=== PATIENT | female | born 1965 | race Caucasian/White ===

== ENCOUNTER 2017-11-02 09:39 | Day surgery (SDC) | payer OTHER ==
[2017-10-30 15:24] LABS: ALBUMIN 3.5 g/dL (3.4-5.0); ANION GAP 8 mmol/L (5-15); CALCIUM 8.7 mg/dL (8.5-10.1); CHLORIDE 104 mmol/L (98-107)
[2017-10-30 15:28] LABS: ALANINE AMINOTRANSFERASE 33 U/L (12-78); ALKALINE PHOSPHATASE 102 U/L (45-117); BILIRUBIN,TOTAL 0.5 mg/dL (0.2-1.0); CREATININE 0.75 mg/dL (0.55-1.02); TOTAL PROTEIN 7.1 g/dL (6.4-8.2)
[~2017-11-02] VITALS: Ht 154.9 cm; Wt 126.4 kg
[~2017-11-02 09:39] MED LIST: ADAL40KI INJ; ALLO100T30 PO; ATOR20TA9 PO; CHOL20002 PO; CITA40TA12 PO; CYCL-259 PO; FOLI-17 PO; GABA600T2 PO; HYDR200T72 PO; LEVO137T3 PO; LEVO150T PO; LOVA40TA2 PO; METF500T5 PO; METH2.5T PO; NAPR250T6 PO; NITR50CA PO; OXYC-302 PO; PANT40TA5 PO; TIMO5DRO8 EACHEYE; VALA1000 PO; VALA500T PO
[2017-11-02] MEDS ORDERED: LACTATED RINGERS 1,000 ML IV SCH (10:05)
[2017-11-02 10:11] VITALS: BP 147/85
[2017-11-02 10:32] LABS: HCG UR SG 1.013 (1.003-1.030)
== END 2017-11-02 13:58 | disposition home or self-care (01) ==
LOC: OUT 09:39
PROVIDERS: ATTEND Internal Medicine
DX: Z12.11 Encounter for screening for malignant neoplasm of colon (principal); K21.9 Gastro-esophageal reflux disease without esophagitis; E78.5 Hyperlipidemia, unspecified; E03.9 Hypothyroidism, unspecified; E11.9 Type 2 diabetes mellitus without complications; G47.33 Obstructive sleep apnea (adult) (pediatric); Z88.0 Allergy status to penicillin
CPT/HCPCS: 36415; 80053; 81025

== ENCOUNTER → 2020-08-19 | Outpatient (CLI) | payer OTHER ==
[~2020-08-19] MED LIST changes: +ATOR20TA37 PO; -ATOR20TA9 PO; -CHOL20002 PO; +CHOL200052 PO; -CYCL-259 PO; +CYCL10TA2 PO; -FOLI-17 PO; +FOLI1TAB32 PO; -GABA600T2 PO; +GABA600T7 PO; +METF500T17 PO; -METF500T5 PO; +NAPR-872 PO; -NAPR250T6 PO; +OMNIPAQUE 350 MG/ML, 100ML BOTTLE ONE; -OXYC-302 PO; +OXYC1TAB14 PO; -PANT40TA5 PO; +PANT40TA6 PO; -VALA1000 PO; +VALA10007 PO; -VALA500T PO; +VALA500T8 PO
== END | disposition home or self-care (01) ==
LOC: CFH 08:16
PROVIDERS: ATTEND Surgery
DX: D17.0 Benign lipomatous neoplasm of skin and subcutaneous tissue of head, face and neck (principal)
CPT/HCPCS: 70491; Q9967

== ENCOUNTER 2020-09-23 06:27 | Day surgery (SDC) | payer OTHER ==
[2020-09-21 12:30] LABS: BASOPHILS % (AUTO) 1 % (0-1); EOSINOPHILS % (AUTO) 2 % (1-7); LYMPHOCYTES % (AUTO) 29 % (22-44); MEAN CORPUSCULAR HGB CONC 33.7 g/dL (32.4-35.8); MEAN PLATELET VOLUME 8.8 fL (7.4-10.4); MONOCYTES % (AUTO) 11 % (2-9); NEUTROPHILS % (AUTO) 57 % (42-75); PLATELET COUNT 290 x10^3/uL (130-400); RED BLOOD COUNT 4.56 x10^6/uL (3.82-5.3); RED CELL DISTRIBUTION WIDTH 16.8 % (9.6-15.2)
[2020-09-21 12:31] LABS: MD NO
[2020-09-21 12:39] LABS: INTERNATIONAL NORMALIZED RATIO 0.96 (0.93-1.1); PROTHROMBIN TIME 10.3 Seconds (9.6-11.5)
[2020-09-21 12:41] LABS: ALANINE AMINOTRANSFERASE 51 U/L (12-78); ALBUMIN 3.6 g/dL (3.4-5.0); ANION GAP 5 mmol/L (5-15); CALCIUM 8.8 mg/dL (8.5-10.1); CHLORIDE 108 mmol/L (98-107); CREATININE 0.68 mg/dL (0.55-1.02)
[2020-09-21 12:44] LABS: ALKALINE PHOSPHATASE 80 U/L (45-117); BILIRUBIN,TOTAL 0.5 mg/dL (0.2-1.0); TOTAL PROTEIN 6.9 g/dL (6.4-8.2)
[~2020-09-23] VITALS: Ht 154.9 cm; Wt 130.4 kg
[~2020-09-23 06:27] MED LIST changes: +BACL-19 PO; +CHOL10003 PO; +METF1000 PO; -OMNIPAQUE 350 MG/ML, 100ML BOTTLE ONE
[2020-09-23] MEDS ORDERED: EPINEPHRINE 1 MG/ML, 1ML ONE (06:56)
[2020-09-23] MEDS ORDERED: BUPIVACAINE/PF 0.5% ONE (06:56)
[2020-09-23] MEDS ORDERED: LACTATED RINGERS 1,000 ML IV SCH (07:00)
[2020-09-23 07:05] VITALS: BP 129/79
[2020-09-23] MEDS ORDERED: CHLORHEXIDINE 15 ML UDC PO ONE (07:30)
[2020-09-23] MEDS ORDERED: PROPOFOL 50 ML ONE (07:34)
[2020-09-23] MEDS ORDERED: MIDAZOLAM 1 MG/ML, 2ML ONE (07:34)
[2020-09-23] MEDS ORDERED: FENTANYL PF 250 MCG/5ML ONE (07:34)
[2020-09-23] MEDS ORDERED: CEFAZOLIN 1,000 MG ONE (07:35)
[2020-09-23] MEDS ORDERED: ONDANSETRON 2MG/ML, 2ML ONE (07:36)
[2020-09-23] MEDS ORDERED: PROPOFOL 10 MG/ML, 20ML ONE (07:36)
[2020-09-23] MEDS ORDERED: DEXAMETHASONE 4 MG/ML, 1ML ONE (07:36)
[2020-09-23] MEDS ORDERED: SUCCINYLCHOLINE 20 MG/ML, 10ML ONE (07:36)
[2020-09-23] MEDS ORDERED: ROCURONIUM 10MG/ML,5ML ONE (07:36)
[2020-09-23] MEDS ORDERED: DIPHENHYDRAMINE 50 MG/ML, 1ML IVPush PRN (08:00)
[2020-09-23] MEDS ORDERED: MEPERIDINE/PF 25MG/0.5ML IVPush PRN (08:00)
[2020-09-23] MEDS ORDERED: DIAZEPAM 5 MG/ML, 2ML IVPush PRN (08:00)
[2020-09-23] MEDS ORDERED: ONDANSETRON 2MG/ML, 2ML IVPush PRN (08:00)
[2020-09-23] MEDS ORDERED: PROMETHAZINE 25 MG/ML, 1ML IVPush PRN (08:00)
[2020-09-23] MEDS ORDERED: EPHEDRINE 50 MG/ML, 1ML IVPush PRN (08:00)
[2020-09-23] MEDS ORDERED: EPHEDRINE 50 MG/ML, 1ML IM PRN (08:00)
[2020-09-23] MEDS ORDERED: ACETAMINOPHEN 325 MG TABLET PO PRN (08:00)
[2020-09-23] MEDS ORDERED: LABETALOL 5MG/ML, 20ML IV PRN (08:00)
[2020-09-23] MEDS ORDERED: FENTANYL PF 100 MCG/2ML IV PRN (08:00)
[2020-09-23] MEDS ORDERED: morphine SULFATE 10 MG/ML, 1ML IVPush PRN (08:00)
[2020-09-23] MEDS ORDERED: HYDR-2214 PO (09:42)
[2020-09-23] MEDS ORDERED: FENTANYL PF 100 MCG/2ML ONE (10:13)
[2020-09-23] MEDS ORDERED: KETOROLAC 30 MG/1 ML ONE (10:13)
[2020-09-23] MEDS ORDERED: KETOROLAC 30 MG/1 ML IM ONE (10:30)
== END 2020-09-23 13:25 | disposition home or self-care (01) ==
LOC: OUT 06:27
PROVIDERS: ATTEND Surgery
DX: D48.1 Neoplasm of uncertain behavior of connective and other soft tissue (principal); E11.9 Type 2 diabetes mellitus without complications; M79.7 Fibromyalgia; E06.9 Thyroiditis, unspecified; E66.01 Morbid (severe) obesity due to excess calories; M19.90 Unspecified osteoarthritis, unspecified site; Z88.0 Allergy status to penicillin; Z98.890 Other specified postprocedural states; Z79.899 Other long term (current) drug therapy; Z79.84 Long term (current) use of oral hypoglycemic drugs; Z87.891 Personal history of nicotine dependence; Z20.822 Contact with and (suspected) exposure to COVID-19; Z68.43 Body mass index [BMI] 50.0-59.9, adult
CPT/HCPCS: 21554; 36415; 80053; 85025; 85610; 88304; 93005; J0171; J0330; J0690; J1100; J2250; J2405; J2704; J3010; J7120; U0003; U0005; 88305